=== PATIENT | male | born 1990 | race Caucasian/White ===

== ENCOUNTER 2018-04-18 12:53 | Emergency (ER) | payer OTHER ==
[~2018-04-18] VITALS: Ht 182.9 cm; Wt 97.5 kg
[2018-04-18 13:28] VITALS: BP 130/92
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
[2018-04-18] MEDS ORDERED: KETOROLAC 30 MG/ML VIAL IM ONE (14:45)
--- NOTE | 2018-04-18 14:52 | NUR ---
PT TO RADIOLOGY VIA
--- NOTE | 2018-04-18 14:58 | NUR ---
PATIENT RETURNED FROM XRAY.
--- NOTE | 2018-04-18 15:35 | NUR ---
Patient discharged with v/s stable. Written and verbal after care instructions given and explained. Patient alert, oriented and verbalized understanding of instructions. Ambulatory with steady gait. All questions addressed prior to discharge. ID band removed. Patient advised to follow up with PMD. Rx of IBUPROFEN 600MG given. Patient educated on indication of medication including possible reaction and side effects. Opportunity to ask questions provided and answered.
== END 2018-04-18 15:35 | disposition home or self-care (01) ==
LOC: MED 12:53
DX: S86.911A Strain of unspecified muscle(s) and tendon(s) at lower leg level, right leg, initial encounter (principal); W22.8XXA Striking against or struck by other objects, initial encounter; Y93.55 Activity, bike riding; Y92.89 Other specified places as the place of occurrence of the external cause; Y99.8 Other external cause status
CPT/HCPCS: 29505; 73560; 96372; 99283; J1885

== ENCOUNTER 2018-05-10 15:15 | Emergency (ER) | payer OTHER ==
[~2018-05-10] VITALS: Ht 182.9 cm; Wt 97.5 kg
[2018-05-10 15:22] VITALS: BP 147/88
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
[2018-05-10] MEDS ORDERED: predniSONE 20 MG TAB PO ONE (16:30)
[2018-05-10] MEDS ORDERED: ALBUTEROL 0.083% 2.5 MG/3 ML NEBU INH ONE ×2 (16:30→17:30)
[2018-05-10] MEDS ORDERED: IPRATROPIUM 0.02% 0.5 MG/2.5 ML NEBU INH ONE (16:30)
--- NOTE | 2018-05-10 18:12 | NUR ---
PT VERBALIZED FEELING BETTER. AFEBRILE.
[2018-05-10 18:17] VITALS: BP 129/85
--- NOTE | 2018-05-10 18:17 | NUR ---
Patient discharged with v/s stable. Written and verbal after care instructions given and explained. Patient alert, oriented and verbalized understanding of instructions. Ambulatory with steady gait. All questions addressed prior to discharge. ID band removed. Patient advised to follow up with PMD. Rx of ALBUTEROL INHALER, PREDNISONE AND AEROCHAMBER given. Patient educated on indication of medication including possible reaction and side effects. Opportunity to ask questions provided and answered.
== END 2018-05-10 18:17 | disposition home or self-care (01) ==
LOC: MED 15:15
DX: J20.9 Acute bronchitis, unspecified (principal); R03.0 Elevated blood-pressure reading, without diagnosis of hypertension; F17.210 Nicotine dependence, cigarettes, uncomplicated
CPT/HCPCS: 71045; 94640; 99284; J7512; J7613; J7644; Q0092; 99283

== ENCOUNTER 2020-03-31 06:40 | Emergency (ER) | payer OTHER ==
[~2020-03-31] VITALS: Ht 182.9 cm; Wt 104.3 kg
[2020-03-31 06:42] VITALS: BP 150/90
--- NOTE | 2020-03-31 06:42 | NUR ---
TO BED AMBULATORY
[2020-03-31] MEDS ORDERED: KETOROLAC 60 MG/2 ML VIAL IM ONE (06:50)
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
--- NOTE | 2020-03-31 06:56 | NUR ---
radiology at bedside
[2020-03-31 08:42] VITALS: BP 145/81
== END 2020-03-31 08:44 | disposition home or self-care (01) ==
LOC: MED 06:40
DX: S83.92XA Sprain of unspecified site of left knee, initial encounter (principal); W18.39XA Other fall on same level, initial encounter; Y93.89 Activity, other specified; Y92.89 Other specified places as the place of occurrence of the external cause; Y99.8 Other external cause status
CPT/HCPCS: 29505; 73562; 96372; 99283; J1885